=== PATIENT | female | born 1980 | race Caucasian/White ===

== ENCOUNTER 2021-04-13 13:26 | Emergency (ER) | payer OTHER, SELFPAY ==
[2021-04-13] VITALS (23 sets, daily range): BP systolic 156–181; BP diastolic 76–102; PULSE 72–86; RESP 10–19; TEMP 36.4; O2SAT 95–100
--- NOTE | ~2021-04-13 | CT_ITS ---
EXAMINATION: CT abdomen pelvis w con DATE: 04/13/2021 17:07 INDICATION: Generalized abdominal pain TECHNIQUE: Computed tomography (CT) of the abdomen and pelvis was performed with 100 cc Omnipaque 350 intravenous contrast. The dose-length product was 1724.85 mGy-cm. Automated exposure control and ite rative reconstruction technique were employed. COMPARISON: None. FINDINGS: Lung bases are unremarkable. Heart size normal. No significant pleural or pericardial effus ion. No significant vascular abnormality. No lymphadenopathy. The liver, spleen, pancreas, adrenal gl ands and kidneys are unremarkable. Gallbladder is present. Normal appendix. No abnormal pelvic masses or fluid collections. No free air or free fluid. No acute osseous abnormality. IMPRESSION: 1. No acute abdominal abnormality. Reviewed, dictated and finalized at location A. N DRIVER
--- NOTE | ~2021-04-13 | US_ITS ---
EXAMINATION: US pelvic complete w TV DATE: 04/13/2021 15:25 INDICATION: Abnormal uterine bleeding Comparison:No prior studies for comparison. TECHNIQUE: Multiple transabdominal and endovaginal sonographic images of the pelvis performed. FINDINGS: The uterus measures 9.3 x 5.6 x 5.7 cm. The endometrial complex measures 11 mm. The right ovary measures 4.5 x 2.8 x 3.2 cm and the left ovary is not visualized. There is a 3.5 cm r ight ovarian cyst. Normal doppler signal in both ovaries. There is no free fluid in the pelvis. There are no abnormal masses seen on either side. IMPRESSION: 1. Right ovarian cyst measuring 3.5 cm. Reviewed, dictated and finalized at location A. [employer] PROFESSOR
[2021-04-13 14:31] LABS: Basophils Percent Auto 0.5 % (0.2-1.2); Eosinophils Absolute Auto 0.3 K/mm3 (0-0.3); Eosinophils Percent Auto 3.5 % (0-4.4); Hematocrit 36.3 % (37.0-47.0); Hemoglobin 11.4 g/dL (12.0-15.0); Immature Granulocyte Absolute 0.03 K/mm3 (0.00-0.031); Immature Granulocyte Percent A 0.3 % (0-0.5); Lymphocytes Absolute Auto 1.88 K/mm3 (0.9-3.2); Lymphocytes Percent Auto 21.4 % (18.3-44.2); Mean Corpuscular HGB Conc 31.4 g/dl (32-36); Mean Corpuscular Hemoglobin 24.2 pg (26-34); Mean Corpuscular Volume 76.9 fl (80-100); Mean Platelet Volume 9.3 fl (7.4-10.4); Monocytes Absolute Auto 0.6 K/mm3 (0.1-0.6); Monocytes Percent Auto 7.3 % (2.6-8.5); Neutrophils Absolute Auto 5.9 K/mm3 (1.3-6.7); Platelet Count Result 299 k/mm3 (150-375); Red Blood Count 4.72 M/mm3 (4.2-5.4); White Blood Count 8.8 K/mm3 (4.5-10.0)
[2021-04-13 14:41] LABS: Alanine Aminotransferase 85 U/L (4-35); Albumin Level 3.9 g/dL (3.5-5.1); Alkaline Phosphatase 103 U/L (38-126); Anion Gap 8 mmol/L (8-16); Aspartate Amino Transferase 48 U/L (14-36); Bilirubin,Total 0.5 mg/dL (0.2-1.3); Blood Urea Nitrogen 11 mg/dL (7-17); Calcium 9.3 mg/dL (8.4-10.2); Carbon Dioxide 26 mmol/L (22-30); Chloride 100 mmol/L (98-107); Estimated CRCL calculation 138 ml/min; Estimated Glomerular Filt Rate > 60; Glucose 155 mg/dL (65-110); Potassium 3.8 mmol/L (3.4-5.0); Sodium 134 mmol/L (137-145)
[2021-04-13 14:48] LABS: Prothrombin Time 12.6 Seconds (11.1-14.7)
[2021-04-13 14:49] LABS: Partial Thromboplastin Time 26.6 SECONDS (22.3-36.8)
--- NOTE | 2021-04-13 15:01 | ED.FEMALEGU ---
HPI - Female Genitourinary General Chief complaint: Vaginal Bleeding Stated complaint: vaginal bleeding Time Seen by Provider: 04/13/21 13:51 Source: patient Mode of arrival: ambulatory Limitations: no limitations History of Present Illness HPI Narrative: This is a 41 year old female that presents to the ER for vaginal bleeding. Ongoing over the last month. Reports she started her menstrual cycle on the first of this month and has continued to bleed. Reports over the last 3 to 5 days the bleeding has become more heavy. She is having to use a tampon every 1/2 hour. She has been seeing Dr. Hart for this. Was scheduled for an ultrasound this week but did not think she would make it to her appointment. Reports diffuse crampy abdominal pain. Also reports nausea. Denies fever, vomiting, or dysuria. Related Data Allergies Allergy/AdvReac Type Severity Reaction Status Date / Time diphenhydramine Allergy Unknown Other Verified 04/13/21 13:41 prednisone Allergy Unknown Other Verified 04/13/21 13:41 Review of Systems Review of Systems: CONSTITUTIONAL: Denies fever GASTROINTESTINAL: Reports abdominal pain, nausea. Denies vomiting GENITOURINARY: Denies dysuria or hematuria. All systems reviewed & are unremarkable except as noted in HPI and below PMFSH Past Medical History Medical History (Updated 04/13/21 @ 17:36 by Martina Briseno PA-C) History of hypertension History of hypothyroidism Social History Social History (Updated 04/13/21 @ 15:06 by Martina Briseno PA-C) Smoking status: Former smoker Exam Narrative: GENERAL: Well-appearing, obese, and in no acute distress. HEAD: Normocephalic, atraumatic. EYES: EOMI. ENT: Mucous membranes moist. CHEST: Clear to auscultation. No respiratory distress. No wheezes rales or rhonchi HEART: Regular rate and rhythm. No murmur heard. Normal peripheral pulses. ABDOMEN: Soft, nondistended, normal active bowel sounds. Tender to palpation throughout the abdomen, without guarding EXTREMITIES: Normal range of motion. No edema. SKIN: Warm, dry, no rash. NEURO: No focal deficits. Alert and oriented x3. PSYCH: Normal mood and affect PELVIC: Small amount of dark red blood in the vaginal vault Course Consultations Consultation #1: Spoke with Dr. Hopkins about patient and work-up will follow-up in clinic. Patient will be started on Provera to help with bleeding. Date: 04/13/21 Time: 17:30 Vital Signs Vital signs: Vital Signs Temperature 97.6 F 04/13/21 13:43 Pulse Rate 82 04/13/21 13:43 Respiratory Rate 18 04/13/21 13:43 Blood Pressure 181/93 H 04/13/21 13:43 Pulse Oximetry 99 04/13/21 13:43 Temperature 97.6 F 04/13/21 13:43 Pulse Rate 82 04/13/21 13:43 Respiratory Rate 18 04/13/21 13:43 Blood Pressure 181/93 H 04/13/21 13:43 Pulse Oximetry 99 04/13/21 13:43 MDM - Female Genitourinary MDM Narrative Medical decision making narrative: Patient presents to the emergency department for abnormal uterine bleeding. Also reporting abdominal pain. She is afebrile and nontoxic-appearing. CBC is without leukocytosis. Shows microcytic anemia with hemoglobin of 11.4. Metabolic panel with mild transaminitis. Lipase is normal. UA without evidence of infection. Bedside test is negative. Pelvic ultrasound shows a right ovarian cyst measuring 3.5 cm. Normal vascular flow to the ovaries. No free fluid in the pelvis. No abnormal masses seen. CT scan of the abdomen and pelvis is without acute findings. Spoke with Dr. Hopkins about patient and work-up will follow-up in clinic. Patient will be started on Provera to help with bleeding. Patient is stable and felt appropriate for further outpatient evaluation. She was given warnings to return to the ER Lab Data Attestation: I reviewed the patient's lab results. Result diagrams: 04/13/21 14:23 04/13/21 14:23 Labs: Lab Results 04/13/21 04/13/21 04/13/21 Range/Units 1
--- NOTE | 2021-04-13 15:04 | PC.NURSE ---
Pt gone to ultrasound
--- NOTE | 2021-04-13 15:09 | PC.NURSE ---
Called lab and spoke to Rebeka to add on Lip
[2021-04-13 15:18] LABS: Lipase 88 U/L (23-300)
[2021-04-13 15:19] LABS: Add Urine Microscopic? YES; Appearance Urine Cloudy (Clear); Bilirubin Urine Negative (Negative); Blood Urine 3+ (Negative); Color Urine Yellow (Yellow); Glucose Urine UA Negative (Negative); Ketones Urine Negative (Negative); Leukocyte Esterase Ur Negative LEU/UL (Negative); Mucus Urine Rare /lpf; Nitrate Urine Negative (Negative); Protein Urine 1+ mg/dL (Negative); RBC Urine >75 /hpf (0-2); Specific Grav Ur 1.017 (1.001-1.035); Squamous Epithelial Cell Urine Few /hpf (Few); Urobilinogen Urine Negative mg/dL (<2.0)
[2021-04-13] MEDS: KETOROLAC 15 MG/ML VIAL (*BKC) IV PUSH (16:30)
[2021-04-13] MEDS: ONDANSETRON INJ 4 MG/2 ML VIAL IV PUSH (16:30)
== END 2021-04-13 18:14 | disposition home or self-care (01) ==
PROVIDERS: Physician Assistant; Emergency Provider Emergency Medicine; PCP Internal Medicine
DX: N93.8 Other specified abnormal uterine and vaginal bleeding (principal); N83.201 Unspecified ovarian cyst, right side; I10 Essential (primary) hypertension; E03.9 Hypothyroidism, unspecified; Z87.891 Personal history of nicotine dependence
CPT/HCPCS: 36415; 74177; 76830; 76856; 80053; 81001; 81025; 83690; 85025; 85610; 85730; 86850; 86900; 86901; 96374; 96375; 99284; J0131; J1885; J2405; Q9967

== ENCOUNTER 2022-07-22 17:58 | Emergency (ER) | payer OTHER, SELFPAY ==
[2022-07-22 18:04] VITALS: BP 178/98; PULSE 72; RESP 20; TEMP 36.7; O2SAT 98
--- NOTE | 2022-07-22 18:11 | ED.URI ---
HPI - URI/Sore Throat General Chief Complaint: Upper Respiratory Infection Stated Complaint: Shortness of Breath/Cold Symptoms Time Seen by Provider: 07/22/22 18:10 Source: patient and RN notes reviewed History of Present Illness HPI Narrative: Patient is a 42 year old female who presents to urgent care with complaints of cold symptoms for the last 4 days with intermittent cough and shortness of breath. Patient states she has heard some wheezing and does have a history of asthma but has not been using her inhaler. Patient also reports of some congestion. States she has been taking DayQuil and NyQuil. Reports of recurrent yeast infections with mild vaginal irritation, urinary frequency and burning with urination. Patient states that is been going on for approximately 5 days. Patient is prediabetic but has not been taking her metformin consistently due to having upset stomach. Patient states she did have an exposure to strep throat but has not had strep since her tonsils were removed. No other acute complaints. No acute distress noted. Patient aware of the plan of care. Some parts of this dictation were generated by voice recognition software and may contain typographical and/or grammatical inaccuracies. Related Data Home Medications Medication Instructions Recorded Confirmed valsartan 80 tablet 07/22/22 07/22/22 mg-hydrochlorothiazide 12.5 mg tablet Allergies Allergy/AdvReac Type Severity Reaction Status Date / Time diphenhydramine Allergy Unknown Other Verified 07/22/22 18:15 prednisone Allergy Unknown Other Verified 07/22/22 18:15 Review of Systems Review of Systems: CONSTITUTIONAL: Denies fever, chills, or sweats. EYES: Denies visual changes, redness, or discharge. ENT: Reports congestion, rhinorrhea CARDIOVASCULAR: Denies chest pain, palpitations, or edema. RESPIRATORY: Reports dry cough, intermittent dyspnea and using GASTROINTESTINAL: Denies abdominal pain, nausea, vomiting, or diarrhea. GENITOURINARY: Reports vaginal irritation, dysuria, and urinary frequency and SKIN: Denies rash or itching. MUSCULOSKELETAL: Denies back pain, joint pain, or myalgia. NEUROLOGIC: Denies headache, numbness, or weakness. All other systems reviewed are negative, except as documented in HPI. [facility] Past Medical History Medical History (Updated 07/22/22 @ 19:03 by LAITH Abel) History of hypertension History of hypothyroidism Social History Social History (Updated 04/13/21 @ 15:06 by Martina Briseno PA-C) Smoking status: Former smoker Comments At the time of my signature, I reviewed and agree with the nursing past medical, surgical, social, and family history. There is no relevant family history pertinent to the patient complaint. Exam Narrative: GENERAL: This is a well-nourished, well-developed patient, in no apparent distress. HEAD: normocephalic, atraumatic. EYES: PERRL. Sclera clear/white. Vision is grossly intact. EARS: External ears normal, auditory canals clear and without drainage, TMs normal without perforation. Hearing grossly intact. NOSE: External nose normal with no obvious nasal discharge, nares without redness, no rhinorrhea. THROAT: Mucous membranes moist, posterior pharynx clear. Mild postnasal drainage NECK: Neck supple, non-tender without lymphadenopathy CARDIOVASCULAR: Regular rate and rhythm RESPIRATORY: Scant expiratory wheeze bilateral upper lobes SKIN: warm, intact with no suspicious lesions or rash, good texture and turgor. NEURO: awake, alert, and oriented to person, place and time. There were no obvious focal neurologic abnormalities. EXTREMITIES: No clubbing, cyanosis, or edema. BACK: Negative CVA tenderness Course Course Level of Care: Express Care Visit Vital Signs Vital signs: Vital Signs Temperature 98.1 F 07/22/22 18:04 Pulse Rate 72 07/22/22 18:04 Respiratory Rate 20 07/22/22 18:04 Blood Pressure 178/98 H 07/22/22 18:04 Pulse Oximetry
[2022-07-22 18:45] LABS: Glucose Point of Care 238 mg/dl (65-105)
== END 2022-07-22 19:05 | disposition home or self-care (01) ==
PROVIDERS: Emergency Provider Nurse Practitioner Family; PCP Family Medicine
DX: B37.31 Acute candidiasis of vulva and vagina (principal); J00 Acute nasopharyngitis [common cold]; I10 Essential (primary) hypertension; E03.9 Hypothyroidism, unspecified; Z87.891 Personal history of nicotine dependence
CPT/HCPCS: 81003; 82948; 99213; G0463